=== PATIENT | male | born 1960 | race Caucasian/White ===

== ENCOUNTER → 2018-11-20 | Outpatient (CLI) | payer OTHER ==
--- NOTE | 2018-11-20 16:18 | 2DMMODE ---
[place] [address] 2 D/M-MODE ECHOCARDIOGRAM Name: KIERA JENSEN Room: [facility]#: [id number] Admission: 11/20/18 Attend Phys: Shemar Thacker, Discharge: Date of : 58 Date of Service: 11/20/18 1618 Report #: [id number] THIS REPORT FOR: //name// APPROVED REPORT Study performed: 11/20/2018 09:56:55 EXAM: Comprehensive 2D, Doppler, and color-flow Echocardiogram Patient Location: Out-Patient BSA: 2.19 HR: 72 bpm BP: 122/70 mmHg Other Information Study Quality: Good Indications CAD Hypertension/HDD 2D Dimensions IVSd: 12.93 (7-11mm) LVOT Diam: 20.53 (18-24mm) LVDd: 43.48 mm PWd: 10.90 (7-11mm) Ascending Ao: 31.74 (22-36mm) LVDs: 27.58 (25-40mm) Aortic Root: 25.57 mm Volumes Left Atrial Volume (Systole) LA ESV Index: 15.60 mL/m2 Aortic Valve AoV Peak Abbe.: 1.42 m/s AO Peak Gr.: 8.11 mmHg LVOT Max P.31 mmHg AO Mean Gr.: 4.56 mmHg LVOT Mean P.36 mmHg LVOT Max V: 1.35 m/s AO V2 VTI: 29.67 cm LVOT Mean V: 0.84 m/s SAMANTHA (VTI): 3.36 cm2 LVOT V1 VTI: 30.10 cm Mitral Valve E/A Ratio: 1.16 MV Decel. Time: 209.27 ms MV E Max Abbe.: 1.03 m/s MV PHT: 60.69 [place] [address] 2 D/M-MODE ECHOCARDIOGRAM Name: KIERA JENSEN Room: [facility]#: [id number] Admission: 11/20/18 Attend Phys: Shemar Thacker, Discharge: Date of : 58 Date of Service: 11/20/18 1618 Report #: [id number] MVA (PHT): 3.63 cm2 TDI E/Lateral E': 9.36 E/Medial E': 10.30 Medial E' Abbe.: 0.10 m/s Lateral E' Abbe.: 0.11 m/s Pulmonary Valve PV Peak Abbe.: 1.19 m/s PV Peak Gr.: 5.62 mmHg Left Ventricle The left ventricle is normal size. There is normal LV segmental wall motion. There is normal left ventricular wall thickness. Left ventricular systolic function is normal. LVEF is 55-60%. The left ventricular diastolic function is normal. Right Ventricle The right ventricle is normal size. The right ventricular systolic function is normal. Atria The left atrium size is normal. The right atrium size is normal. Aortic Valve Aortic valve is mildly calcified. No aortic regurgitation is present. There is no aortic valvular stenosis. Mitral Valve The mitral valve is normal in structure. Trace mitral regurgitation. No evidence of mitral valve stenosis. Tricuspid Valve The tricuspid valve is normal in structure. There is no tricuspid valve regurgitation noted. Pulmonic Valve The pulmonary valve is normal in structure. There is no pulmonic valvular regurgitation. Great Vessels The aortic root is normal in size. IVC is normal in size and collapses >50% with inspiration. Pericardium There [place] [address] 2 D/M-MODE ECHOCARDIOGRAM Name: KIERA JENSEN [id number] Admission: 11/20/18 Attend Phys: Shemar Thacker, Discharge: Date of : 58 Date of Service: 11/20/18 1618 Report #: [id number] <Conclusion> The left ventricle is normal size. There is normal left ventricular wall thickness. Left ventricular systolic function is normal. LVEF is 55-60%. The left ventricular diastolic function is normal. There is normal LV segmental wall motion. Trace mitral regurgitation. IVC is normal in size and collapses >50% with inspiration. <ELECTRONICALLY SIGNED> By: Josh Dumont MD, FACC 11/20/18 1618 17 17 Josh Dumont MD, FACC /INF
== END ==
LOC: M.CRD 09:52
DX: I25.10 Atherosclerotic heart disease of native coronary artery without angina pectoris (principal); I10 Essential (primary) hypertension

== ENCOUNTER → 2018-11-29 | Outpatient (CLI) | payer OTHER ==
--- NOTE | 2018-11-29 15:39 | CARDNUC ---
[place] [address] CARDIAC NUCLEAR IMAGING REPORT Name: KIERA JENSEN Room: [facility]#: [id number] Admission: 11/29/18 Attend Phys: Shemar Thacker, Discharge: Date of : 58 Date of Service: 11/29/18 1539 Report #: [id number] THIS REPORT FOR: //name// APPROVED REPORT Study performed: 11/29/2018 14:14:06 Exam: Nuclear Stress Test Indication: Pre-Operative CV evaluation Patient Location: Out-Patient Stress Tech: Alyssa Carbone Stress Nurse: Danielle Koch RN NM Tech:BELLA Singh Ht: 5 ft 10 in Wt: 220 lbs BSA: 2.17 m2 BMI: 31.56 Medical History Medical History: transverse myolitis Medications: asa-81, atorvastatin, carvedilol, lisinopril Allergies: nkda Cardiac Risk Factors: age, hypertension, hyperlipidemia, cad Previous Cardiac Procedures: pci Exercise History: Indeterminate Meds Held (24 hrs): carvedilol Stress Test Details Stress Test: Pharmacologic stress was paired with low level exercise. Reason for pharmacologic stress test: physical limitation. HR Resting HR: 58 bpm Max Heart Rate (APMHR): 161 bpm Max HR Achieved: 106 bpm Target HR (85% APMHR): 136 bpm % of APMHR: 65 Recovery HR: 75 bpm BP Resting BP: 139/86 mmHg Max BP: 160/85 mmHg ECG Resting ECG: Sinus Rhythm Stress ECG: Sinus Rhythm ST Change: [place] [address] CARDIAC NUCLEAR IMAGING REPORT Name: KIERA JENSEN Room: [facility]#: [id number] Admission: 11/29/18 Attend Phys: Shemar Thakcer, Discharge: Date of : 58 Date of Service: 11/29/18 1539 Report #: [id number] Arrhythmia: None Recovery ECG: Sinus Rhythm Recovery ST Change: None Recovery Arrhythmia: None Clinical Reason for Termination: Completed protocol Exercise duration: 0 min sec Exercise capacity: 1 METs The patient tolerated Lexiscan infusion without significant cardiac symptoms. Nurse Comments pt unable to do [place] stress due to transverse myolitis Stress ECG Conclusion The baseline 12-lead EKG shows sinus rhythm without significant ST or T wave abnormality. EKGs obtained during and post Lexiscan infusion show sinus rhythm with no significant ST or T wave changes when compared to baseline. There were no stress-induced arrhythmias. NM EXAM: Myocardial Perfusion REST/STRESS Imaging Protocol: Rest Tc-99m/Stress Tc-99m 1 day Resting Data Rest SPECT myocardial perfusion imaging was performed in supine position 30 minutes following the intravenous injection of 10.6 mCi of Tc-99m Sestamibi. Time of rest injection: 1250 Date: 11/29/2018 The images were gated to evaluate regional wall motion and calculate left ventricular ejection fraction. Administration Route: IV Administration Site: Right AC Pharmacologic Stress Pharmacologic stress test was performed by injecting Regadenoson 0.4 mg IV push followed by the intravenous injection of 35.0 mCi of Tc-99m Sestamibi. Time of stress injection: 1420 Date: 11/29/2018 Administration Route: IV Administration Site: Right AC Gated Stress SPECT was performed 40 minutes after stress injection. The images were gated to evaluate regional wall motion and calculate left ventricular ejection fraction. Prone [place] [address] CARDIAC NUCLEAR IMAGING REPORT Name: KIERA JENSEN [id number] Admission: 11/29/18 Attend Phys: Shemar Thacker, Discharge: Date of : 58 Date of Service: 11/29/18 1539 Report #: [id number] Study Quality Study: Good Artifact: Mild Diaphragmatic artifact Study Data At rest, the left ventricular ejection fraction was 67%.. Post stress, the left ventricular ejection was 54%.. TID = 1.06. Perfusion Perfusion images obtained at rest and post Lexiscan stress show a moderate size moderate to severe intensity reversible defect involving the basal to distal inferior wall. No other significant fixed or reversible defects were identified. Wall Motion Gated images show significant hypokinesis of the basal to mid inferior wall. No other wall motion abnormalities were noted. Nuclear Conclusion ECG Findings: negative for ischemia Clinical Findings: negative for ischemia Nuclear Findings: positive for ischemia Exercise Capacity: not assessed Left Ventricular Function: abnormal Risk Study: high Myocardial perfusion images show a reversible defect of the inferior wall consistent with ischemia. Global LV systolic function is fairly well-preserved with inferior wall motion abnormality as outlined above. This is a high risk study. <Conclusion> The baseline 12-lead EKG shows sinus rhythm without significant ST or T wave abnormality. EKGs obtained during and post Lexiscan infusion show sinus rhythm with no significant ST or T wave changes when compared to baseline. There were no stress-induced arrhythmias. <ELECTRONICALLY SIGNED> By: Josh Dumont MD, FACC 11/29/18 1539 1539 1539 Josh Dumont MD, FACC /INF
== END ==
LOC: M.CRD 11-16 17:20 → M.NUC 11-28 13:00
DX: I25.10 Atherosclerotic heart disease of native coronary artery without angina pectoris (principal); I25.84 Coronary atherosclerosis due to calcified coronary lesion; E11.65 Type 2 diabetes mellitus with hyperglycemia; E78.2 Mixed hyperlipidemia; I10 Essential (primary) hypertension; F03.90 Unspecified dementia, unspecified severity, without behavioral disturbance, psychotic disturbance, mood disturbance, and anxiety; Z79.4 Long term (current) use of insulin; Z79.899 Other long term (current) drug therapy

== ENCOUNTER → 2018-12-10 | Outpatient (CLI) | payer OTHER ==
[2018-12-10] VITALS (8 sets, daily range): BP systolic 111–147; BP diastolic 44–79
[~2018-12-10] VITALS: Ht 177.8 cm; Wt 100.0 kg
[~2018-12-10] MED LIST: ASPIR 8181 MG PO; CELEXA40 MG PO; COPPER2 MG PO; COREG6.25 MG PO; LIORESAL 10 MG10 MG PO; LIPITOR40 MG PO; LISINOPRIL10 MG PO; LUMIGAN2.5 M1 OP; METFORMIN HCL500 MG PO; NEURONTIN 300M300 M2 PO; NORCO 10-325 T1 EACH PO; NOVOLOG100 UNIT/1 SUBQ; PRESERVISION A1 EAC2 PO; TRICOR145 MG PO; WELLBUTRIN SR150 MG PO
[2018-12-10 08:13] LABS: HEMATOCRIT 40.6 % (42.0-52.0); HEMOGLOBIN 13.7 gm/dL (14.0-18.0); MCH 29.2 pg (26.0-34.0); MCHC 33.8 g/dL (28.0-37.0); MCV 86.3 fL (80.0-100.0); MPV 8.1 fl. (7.2-11.1); RBC 4.71 mil/uL (4.50-6.00); RDW-CV 14.2 % (10.5-14.5); WBC 4.5 thou/uL (4.0-11.0)
[2018-12-10 08:18] LABS: ANION GAP 10 mmol/L (7-16); BUN 30 mg/dL (7-18); CALCIUM 9.5 mg/dL (8.5-10.1); CHLORIDE 101 mmol/L (98-107); CO2 28 mmol/L (21-32); CREATININE 1.9 mg/dL (0.6-1.3); GLUCOSE 297 mg/dL (70-99); POTASSIUM 4.7 mmol/L (3.5-5.1); SODIUM 139 mmol/L (136-145)
[2018-12-10 08:23] LABS: APTT 24.8 Seconds (25.0-31.3); PROTIME 10.3 Seconds (9.20-11.50)
[2018-12-10 08:24] LABS: ALBUMIN 3.9 g/dL (3.4-5.0); ALKALINE PHOSPHATASE 71 U/L (46-116); SGOT 15 U/L (15-37); SGPT 38 U/L (30-65); TOTAL BILIRUBIN 0.2 mg/dL (<0.1-1.0); TOTAL PROTEIN 7.9 g/dL (6.4-8.2)
[2018-12-10 08:25] LABS: SERUM ASSESSMENT Clear
[2018-12-10 08:37] LABS: CHOLESTEROL 219 mg/dL (<200); HDL CHOLESTEROL 25 mg/dL (>40); TC:HDL 8.8 Ratio (Not establshd); TRIGLYCERIDE 680 mg/dL (<150); VLDL 136 mg/dL (<40)
--- NOTE | 2018-12-10 10:54 | CARD ---
[address] [address] CARDIAC CATH REPORT Name: CAMILAKIERA RODRIGUEZ Room: [facility] Christina#: [id number] Admission: 12/10/18 Attend Phys: Harvey Ng MD, Discharge: Date of : 58 Report #: [id number] THIS REPORT FOR: //name// APPROVED REPORT Study performed: 12/10/2018 08:43:58 Patient Details The patient is a 58 year-old male Event Personnel Harvey Ng Systems Integration Advisor, Marilin Villanueva RN [facility], Orlando Barbour BUSINESS LIAISON MANAGER Monitor, Barbara Buckley RTR Scrub, Key Sotomayor RTR Monitor Procedures Performed Art Access - R femoral artery* Left Heart Cath w/or w/o Coronaries C Hemostasis w/ Mynx Indication Positive stress test Risk Factors Hypercholesterolemia, Hypertension Previous Procedures/Diagnoses Previous PCI Procedure Narrative The patient was brought electively to the Cardiac Catheterization Laboratory and was prepped and draped in a sterile manner. The right femoral was infiltrated with 2% Lidocaine subcutaneous anesthesia. A Commerce 6 FR sheath was inserted into the right femoral artery. Coronary angiography was performed using coronary diagnostic catheters. The right coronary system was accessed and visualized with a JR 4 6F catheter. The left coronary system was accessed and visualized with a JL 4 6F catheter. The left ventricle was accessed and visualized with a Diagnostic catheter. Left ventricular/Aortic Valve gradient assessed via catheter pullback. Closure device was deployed with a Fr MynxGrip 6/7F. The patient tolerated the procedure well and there were no complications associated with the procedure. There was no hematoma. Intraoperative Conscious Sedation Sedation start time: 921 Case end Time: [place] [address] CARDIAC CATH REPORT Name: KIERA JENSEN Room: [facility]#: [id number] Admission: 12/10/18 Attend Phys: Harvey Ng MD, Discharge: Date of : 58 Report #: [id number] Fentanyl 75 mcg Versed 4 mg Fluoro Time: 3.0 minutes Dose: DAP 36962 cGycm2 970 mGy Contrast Type and Amount: Visipaque 90 ml Coronary Angiography The patient's coronary anatomy is right dominant. Diagnostic Cath Left Main 0% narrowing LAD 40% mid LAD narrowing Circumflex 40% mid circumflex narrowing Right Coronary 100% mid vessel occlusion with prominent [id number] collaterals filling the distal right coronary artery predominantly through the septum from the LAD Left Ventriculography Left Ventriculography was not performed. Hemodynamics The aortic pressure is 130/61 mmHg with a mean of 76 mmHg. The left ventricular pressure is 125/5 mmHg with a mean of mmHg. The left ventricular end diastolic pressure is 14 mmHg. There was no gradient across the aortic valve upon pullback. Conclusion #1 coronary artery disease characterized by the following: A 40% mid LAD narrowing B 40% mid circumflex narrowing C dominant right coronary artery which is totally occluded in its midportion with prominent [id number] collaterals filling the distal right coronary artery #2 normal left-sided hemodynamics study Recommendations Cardiac Risk Reduction Program [facility] [place] [address] CARDIAC CATH REPORT Name: KIERA JENSEN Room: [facility]#: [id number] Admission: 12/10/18 Attend Phys: Harvey Ng MD, Discharge: Date of : 58 Report #: [id number] Diagnostic Cath Approved by: Harvey Ng MD Date/Time: 12/10/2018 10:52:59 <ELECTRONICALLY SIGNED> By: Harvey Ng MD, FACC 12/10/18 1054 1054 1054Harvey Ng MD, FACC /INF
--- NOTE | 2018-12-10 16:24 | EKG ---
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 12/10/18 1624 0811 0 Harvey Ng MD, FACC /EPI
== END | disposition home or self-care (01) ==
LOC: M.CL 07:37
PROVIDERS: Internal Medicine
DX: R94.39 Abnormal result of other cardiovascular function study (principal); I25.10 Atherosclerotic heart disease of native coronary artery without angina pectoris; I77.1 Stricture of artery; F32.9 Major depressive disorder, single episode, unspecified; E11.9 Type 2 diabetes mellitus without complications; I10 Essential (primary) hypertension; E78.1 Pure hyperglyceridemia; G47.33 Obstructive sleep apnea (adult) (pediatric); Z79.01 Long term (current) use of anticoagulants; Z95.5 Presence of coronary angioplasty implant and graft; Z85.53 Personal history of malignant neoplasm of renal pelvis; Z98.890 Other specified postprocedural states; Z87.891 Personal history of nicotine dependence; Z79.82 Long term (current) use of aspirin; Z79.899 Other long term (current) drug therapy; Z79.84 Long term (current) use of oral hypoglycemic drugs

== ENCOUNTER → 2019-10-28 | Outpatient (CLI) | payer MEDICARE ==
[~2019-10-28] VITALS: Ht 175.3 cm; Wt 102.1 kg
[~2019-10-28] MED LIST changes: +BACLOFEN20 MG PO; +DULOXETINE HCL40 MG PO; +LOPRESSOR50 MG PO; +NITROSTAT0.4 M1 SUBLING; +NORTRIPTYLINE H25 M3 PO
[2019-10-28 11:58] LABS: ABSOLUTE EOSINOPHILS 0.2 thou/uL (0.0-0.7); ABSOLUTE LYMPHOCYTES 1.6 thou/uL (0.8-5.3); ABSOLUTE MONOCYTES 0.5 thou/uL (0.0-1.2); ABSOLUTE NEUTROPHILS 2.7 thou/uL (1.6-8.1); BASOPHILS 0.8 %; EOSINOPHILS 3.4 %; HEMATOCRIT 42.5 % (42.0-52.0); HEMOGLOBIN 14.4 gm/dL (14.0-18.0); MCH 29.2 pg (26.0-34.0); MCHC 33.9 g/dL (28.0-37.0); MONOCYTES 9.9 %; MPV 8.5 fl. (7.2-11.1); NUCLEATED RBCS 0 /100WBC; PLATELET COUNT* 214 thou/uL (150-400); POLYS 53.9 %; RBC 4.95 mil/uL (4.50-6.00); RDW-CV 14.8 % (10.5-14.5); WBC 4.9 thou/uL (4.0-11.0)
[2019-10-28 12:07] LABS: CALCIUM 9.6 mg/dL (8.5-10.1); CREATININE 1.4 mg/dL (0.6-1.3); POTASSIUM 5.2 mmol/L (3.5-5.1)
[2019-10-28 12:12] LABS: ALBUMIN 3.8 g/dL (3.4-5.0); TOTAL BILIRUBIN 0.4 mg/dL (<0.1-1.0); TOTAL PROTEIN 8.1 g/dL (6.4-8.2)
[2019-10-28 14:07] VITALS: BP 123/93
--- NOTE | 2019-10-28 16:02 | EKG ---
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 : 1960 Requested By: Devendra Schuster Order Number: [id number] MD: Yogi Goff Measurements Intervals [place] Rate: 63 P: 39 LA: 172 QRS: 94 QRSD: 88 T: QT: 359 QTc: 368 Interpretive Statements Sinus rhythm Borderline right axis deviation Borderline low voltage, extremity leads Nonspecific T abnormalities, lateral leads Minimal ST elevation, anterior leads suggest early repolarizaion Compared to ECG 12/10/2018 08:11:38 ST (T wave) deviation still present Electronically Signed On 10-28-2019 16:02:33 CDT by Yogi Goff [email or web address] <ELECTRONICALLY SIGNED> By: Yogi Goff MD, FAC 10/28/19 1602 1132 1132 Yogi Goff MD, [facility] /EPI
--- NOTE | 2019-11-12 08:09 | PF ---
[address] [address] PULMONARY FUNCTION REPORT Name: KIERA JENSEN Room: [facility]#: [id number] Admission: 10/28/19 Attend Phys: Orlando Tomlin MD Discharge: Date of : 58 Report #: [id number] THIS REPORT FOR: //name// CC: Orlando Bernal [facility] DATE OF SERVICE: 10/28/2019 The FEV1/FVC ratio is normal at 75%. The FVC is normal at 123% and FEV1 is normal at 112%. At 2.85 liters, the DSB51-51 is also normal at 103%. After the first attempt at spirometry, the patient had a syncopal episode; therefore, he was transferred to the Emergency Room. IMPRESSION: Only 1 attempt at spirometry was performed. This is within normal limits with the exception that flow volume loop is mildly concave upwards, which can be a normal variant or could indicate underlying minimal obstruction. The patient subsequently had a syncopal episode and was therefore unable to complete the rest of this test. <ELECTRONICALLY SIGNED> By: Orlando Tomlin MD 11/12/19808 1848 1914Alynda Tomlin MD /nt
== END ==
LOC: M.PUL 10:00 → M.ERS 10:48 → M.PUL 10:48
PROVIDERS: Emergency Medicine Emergency Medical Services; ATTEND Internal Medicine Critical Care Medicine
DX: J44.9 Chronic obstructive pulmonary disease, unspecified (principal)

== ENCOUNTER → 2019-11-19 | Outpatient (CLI) | payer MEDICARE ==
--- NOTE | 2019-12-01 22:03 | SLEEP ---
[address] [address] SLEEP STUDY REPORT Name: CAMILA,KIERA Back Room: [facility]#: [id number] Admission: 11/19/19 Attend Phys: Orlando Tomlin MD Discharge: Date of : 58 Report #: [id number] THIS REPORT FOR: //name// CC: Orlando Bernal [facility] This study has been reviewed in its entirety by a board certified sleep specialist DATE OF SERVICE: 11/19/2019 INDICATION FOR SLEEP STUDY: Previously diagnosed sleep apnea with documented compliance by CPAP memory card data; still the patient has a persistence of excessive daytime sleepiness. INTERPRETATION: Total duration of the study is 381 minutes out of which he was asleep for 266 minutes with an overall sleep efficiency of 70%. Sleep onset initially occurred 11 minutes after lying down in bed, REM onset was 134 minutes after sleep onset. N1 sleep duration is 13%, N2 duration is 55%, N3 duration is 16%, and REM duration is 17%. This is a split night sleep study. During the initial part of the sleep study, the patient was not on positive airway pressure therapy for 115 minutes out of which 87 minutes of sleep time was recorded. This entire duration was in non-REM sleep. The patient is noted to be on the left side throughout the diagnostic portion of the sleep study. Mean heart rate at this time was 69 with a periodic limb movement index elevated to 49.7. Periodic limb movement index with arousals being 8.3. There also was sleep fragmentation present with an arousal index of 34.5. We did record multiple sleep related respiratory events. A majority of these are in other words significantly more than 50% were of central origin; we recorded 15 central apneas in addition to 11 hypopneas and 9 respiratory effort related arousals. The patient's overall apnea-hypopnea index was 17.9 with a respiratory disturbance index of 24.1. The patient also had severe desaturations; however, O2 saturation was mostly maintained at or above 90%. The patient's O2 saturation dropped below 90% for only 0.1 minutes. The patient has a previously documented history of compliance with his CPAP and failure of CPAP therapy based on the findings of the diagnostic portion. The patient also predominantly has central sleep apnea, which cannot be adequately controlled with CPAP therapy. Therefore, the patient was now placed on a BiPAP. The patient was observed on BiPAP therapy for 265 minutes, this included 179 minutes of sleep time, which in turn included 44 minutes of REM sleep. The patient's mean heart rate was now 66. Limb movement index was 55 with a periodic limb movement index of 39.8. Periodic [place] [address] SLEEP STUDY REPORT Name: KIERA JENSEN Room: [facility]#: [id number] Admission: 11/19/19 Attend Phys: Orlando Tomlin MD Discharge: Date of : 58 Report #: [id number] arousals was 7.4. Arousal index remained elevated to 39.5. Review of the BiPAP titration indicates the patient was titrated beginning with a BiPAP pressure of 8/4 gradually increasing it to 17/8. The patient did have a favorable response to BiPAP therapy with significant reduction in sleep related respiratory events. The patient went on a BiPAP of 10/5, sustained sleep was recorded with only occasional sleep related respiratory events occurring on the higher BiPAP pressure of 15/7 also significant improvement was noted and O2 saturation was maintained at or above 90%; however occasional sleep related respiratory events continued to occur. The apnea-hypopnea indices appear to be better on BiPAP pressures higher than 15/7, however, the patient at this time is mostly awake and therefore this improvement is likely the result of the change in sleep stage and not an actual improvement in the patient's respirations as a result of the change in BiPAP pressure. In summary, therefore, there is a marked improvement in the patient's sleep-disordered respirations with the administration of a BiPAP; however, complete correction does not occur and the patient's optimal BiPAP pressure could not be accurately determined based on this sleep study. We did record a 33.5 minutes of supine sleep during the BiPAP titration. However, REM supine sleep was not observed. IMPRESSION: 1. Central sleep apnea with an apnea-hypopnea index of 17.9. The patient was lying on his side throughout the diagnostic portion of the sleep study. 2. There is clear documentation of failure of CPAP therapy central sleep apnea. Regardless, it cannot be adequately controlled with CPAP therapy. With the administration of a BiPAP, there is marked improvement in the patient's apnea noted. Complete of the patient's sleep apnea; however, is not observed. RECOMMENDATIONS: 1. Recommend placing the patient on a BiPAP with an I of 15 and an E of 7. Considering that the patient has a history of narcotic use and also that complete without a backup rate did not occur during this sleep study. I recommend also adding a backup rate of 10 with heated humidity and mask per patient preference while asleep. During the sleep study, a ResMed AirFit F20 full facemask was used, size large with a C-Flex of 2. 2. In case the patient's central sleep apnea is not adequately controlled with this therapy in a few months, I would consider bringing the patient back to the Sleep Lab for a repeat sleep study for BiPAP titration and possible conversion to BiPAP AutoSV advanced if indicated. 3. Recommend considering weight loss. 4. Recommend avoiding driving or other activities requiring vigilance if drowsy. [facility] [address] [place] [address] SLEEP STUDY REPORT Name: KIERA JENSEN Room: [facility]#: [id number] Admission: 11/19/19 Attend Phys: Orlando Tomlin MD Discharge: Date of : 58 Report #: [id number] This entire sleep study was reviewed by board certified sleep physician. <ELECTRONICALLY SIGNED> By: Orlando Tomlin MD 12/01/19 2203 1950 2057Alynda Tomlin MD /nt
== END ==
LOC: M.SLEEPLAB 20:49
PROVIDERS: ATTEND Internal Medicine Critical Care Medicine
DX: G47.33 Obstructive sleep apnea (adult) (pediatric) (principal); G47.19 Other hypersomnia; Z87.898 Personal history of other specified conditions

== ENCOUNTER → 2021-01-27 | Outpatient (CLI) | payer OTHER | LOC: M.CT 10:43 | PROVIDERS: ATTEND Internal Medicine Critical Care Medicine | DX: Z12.2 Encounter for screening for malignant neoplasm of respiratory organs (principal); I70.0 Atherosclerosis of aorta; J98.4 Other disorders of lung; Z87.891 Personal history of nicotine dependence ==